=== PATIENT | female | born 1995 | race Caucasian/White ===

== ENCOUNTER 2017-08-24 11:50 | Inpatient (IN) | payer OTHER ==
[~2017-08-24 11:50] MED LIST: ANAPROX DS550 MG PO; DOXYCYCLINE HY100 MG PO; FLEXERIL10 MG PO; NORCO 5-325 TA1 EACH PO
== END 2017-08-26 12:01 | disposition home or self-care (01) | DRG 775 ==
LOC: FBC 11:50
PROVIDERS: ADMIT Obstetrics & Gynecology
PROC: 10E0XZZ Delivery of Products of Conception, External Approach (ICD-10-PCS; principal; 2017-08-25)
PROC: 10907ZC Drainage of Amniotic Fluid, Therapeutic from Products of Conception, Via Natural or Artificial Opening (ICD-10-PCS; principal; 2017-08-25)
PROC: 3E033VJ Introduction of Other Hormone into Peripheral Vein, Percutaneous Approach (ICD-10-PCS; principal; 2017-08-25)
PROC: 00HU33Z Insertion of Infusion Device into Spinal Canal, Percutaneous Approach (ICD-10-PCS; 2017-08-25)
PROC: 3E0R3BZ Introduction of Anesthetic Agent into Spinal Canal, Percutaneous Approach (ICD-10-PCS; 2017-08-25)
DX: O48.0 Post-term pregnancy (principal); O99.02 Anemia complicating childbirth; Z3A.40 40 weeks gestation of pregnancy; Z37.0 Single live birth; O69.81X0 Labor and delivery complicated by cord around neck, without compression, not applicable or unspecified; O62.3 Precipitate labor
CPT/HCPCS: 01960; 36415; 85027; 99407; J2590; J2795; J3010; J7120

== ENCOUNTER 2023-10-25 21:12 | Emergency (ER) | payer OTHER ==
[~2023-10-25] VITALS: Ht 165.1 cm; Wt 76.0 kg
[2023-10-25 21:45] VITALS: BP 000/00
== END 2023-10-25 21:45 | disposition other institution, planned readmission (95) ==
LOC: ED 21:12
DX: F45.8 Other somatoform disorders (principal); F17.200 Nicotine dependence, unspecified, uncomplicated; Z91.018 Allergy to other foods; Z53.21 Procedure and treatment not carried out due to patient leaving prior to being seen by health care provider
CPT/HCPCS: 36415; 84703

== ENCOUNTER 2024-01-22 12:24 | Emergency (ER) | payer OTHER ==
[~2024-01-22] VITALS: Ht 165.1 cm; Wt 69.8 kg
[2024-01-22 13:17] LABS: BILIRUBIN, URINE NEGATIVE (negative); BLOOD/HGB, URINE NEGATIVE (Negative); KETONE, URINE NEGATIVE (Negative); LEUK ESTERASE, URINE NEGATIVE (negative); NITRITE, URINE NEGATIVE (negative)
[2024-01-22 13:41] LABS: AMPHETAMINES, URINE POSITIVE (NEGATIVE); BARBITURATES, URINE NEGATIVE (NEGATIVE); BENZODIAZEPINE, URINE NEGATIVE (NEGATIVE); BUPRENORPHINE, URINE NEGATIVE (NEGATIVE); CANNABINOID, URINE POSITIVE (NEGATIVE); COCAINE, URINE NEGATIVE (NEGATIVE); ECSTASY, URINE NEGATIVE (NEGATIVE); FENTANYL, URINE NEGATIVE (NEGATIVE); METHADONE, URINE NEGATIVE (NEGATIVE); OPIATES, URINE NEGATIVE (NEGATIVE); OXYCODONE, URINE NEGATIVE (NEGATIVE); PHENCYCLIDINE, URINE NEGATIVE (NEGATIVE)
[2024-01-22 14:00] LABS: BASOPHILS 0.8 % (0-2); EOSINOPHILS 1.4 % (0-6); HEMATOCRIT 39.8 % (35.0-50.0); HEMOGLOBIN 13.5 g/dL (12.0-18.0); LYMPHOCYTES 19.3 % (24-44); MCH 31.6 (27-36); MCHC 33.8 g/dl (30-36); MCV 93.4 fl (81-99); NEUTROPHILS 72.5 % (39-80); PLATELET COUNT 326 K/uL (140-440); RBC 4.26 M/ul (4.3-5.7); RDW 12.5 (10.5-15.0)
[2024-01-22 14:19] LABS: ACETAMINOPHEN 0 ug/mL (10-30); ALBUMIN 4.3 g/dL (3.4-5.0); ALBUMIN/GLOBULIN RATIO 1.26 (1.1-2.4); ALCOHOL, MEDICAL <3 ng/dL (<3); ALKALINE PHOSPHATASE 69 U/L (46-116); ALT (SGPT) 26 U/L (14-59); ANION GAP 13.8 (7-21); AST (SGOT) 28 U/L (15-37); BILIRUBIN, TOTAL 0.4 ng/dL (0.2-1.0); BUN/CREATININE RATIO 14.08 (6.0-28.6); CALCIUM 10.1 mg/dL (8.5-10.1); CARBON DIOXIDE 28 mmol/L (21-32); CHLORIDE 100 mmol/L (98-107); CREATININE, SERUM 0.71 mg/dL (0.55-1.02); GLOMERULAR FILTRATION RATE,EST 118 mL/min (>60); POTASSIUM 3.8 mmol/L (3.5-5.1); PROTEIN, TOTAL 7.7 g/dL (6.4-8.2); SALICYLATE 3.3 mg/dL (2.8-20.0); UREA NITROGEN 10 mg/dL (7-18)
[2024-01-22] MEDS ORDERED: HALOPERIDOL LACTATE 5 MG/ML VIAL IM ONE ×2 (14:45→18:00)
[2024-01-22] MEDS ORDERED: LORazepam 2 MG/ML VIAL IM ONE ×2 (14:45→18:00)
[2024-01-22] MEDS ORDERED: diphenhydrAMINE HCL 50 MG/ML VIAL IM PRN (14:45)
[2024-01-22] MEDS ORDERED: diphenhydrAMINE HCL 50 MG/ML VIAL IM ONE (18:30)
[2024-01-23 02:56] LABS: BASOPHILS 0.9 % (0-2); EOSINOPHILS 5.8 % (0-6); HEMATOCRIT 39.9 % (35.0-50.0); HEMOGLOBIN 13.2 g/dL (12.0-18.0); LYMPHOCYTES 40.1 % (24-44); MCH 31.4 (27-36); MCHC 33.2 g/dl (30-36); MCV 94.4 fl (81-99); MONOCYTES 8.7 % (0-12); NEUTROPHILS 44.5 % (39-80); PLATELET COUNT 293 K/uL (140-440); RBC 4.22 M/ul (4.3-5.7); RDW 13.1 (10.5-15.0)
--- NOTE | 2024-01-24 09:00 | EKG ---
[facility] [address] [place], [place] [address] Signed Normal sinus rhythm with sinus arrhythmia Normal ECG No previous ECGs available Confirmed by Carlos Davidson MD ([id number]) on 01/24/2024 9:00:28 AM Electronically Signed By: CARLOS DAVIDSON 01/24/24 0900 PATIENT NAME: AISSATOU BRYSON ALIN Electrocardiogram DATE OF : [birth year] PHYSICIAN: CARLOS DAVIDSON REPORT #: [id number] REPORT IS CONFIDENTIAL AND NOT TO BE RELEASED WITHOUT AUTHORIZATION
[2024-01-24] MEDS ORDERED: HALOPERIDOL LACTATE 5 MG/ML VIAL IM ONE ×2 (12:15→15:45)
[2024-01-24] MEDS ORDERED: diphenhydrAMINE HCL 50 MG/ML VIAL IM PRN (12:15)
[2024-01-24] MEDS ORDERED: LORazepam 2 MG/ML VIAL IM ONE ×2 (12:15→15:45)
[2024-01-24] MEDS ORDERED: diphenhydrAMINE HCL 50 MG/ML VIAL IM ONE (15:45)
[2024-01-25] MEDS ORDERED: LORazepam 1 MG TAB PO ONE (17:30)
--- NOTE | 2024-01-26 13:15 | EKG ---
[facility] [address] [place], [place] [address] Signed Sinus bradycardia Otherwise normal ECG When compared with ECG of 22-JAN-2024 20:11, QT has shortened Confirmed by Carlos Davidson MD ([id number]) on 01/26/2024 1:15:12 PM Electronically Signed By: CARLOS DAVIDSON 01/26/24 1315 PATIENT NAME: ADELAIDEAISSATOU Electrocardiogram DATE OF : [birth year] PHYSICIAN: CARLOS DAVIDSON REPORT #: [id number] REPORT IS CONFIDENTIAL AND NOT TO BE RELEASED WITHOUT AUTHORIZATION
[2024-01-26] MEDS ORDERED: PENICILLIN V POTASSIUM 500 MG TAB PO SCH (14:00)
[2024-01-26] MEDS ORDERED: PENICILLIN V POTASSIUM 500 MG TAB ONE (16:10)
[2024-01-26] MEDS ORDERED: ACETAMINOPHEN 500 MG TAB PO ONE (16:30)
[2024-01-26] MEDS ORDERED: diphenhydrAMINE HCL 25 MG CAP PO ONE (20:30)
[2024-01-27] MEDS ORDERED: OLANZapine 10 MG TABDIS PO SCH (09:00)
[2024-01-27] MEDS ORDERED: AMOXICILLIN 500 MG CAP PO SCH (09:00)
[2024-01-27] MEDS ORDERED: diphenhydrAMINE HCL 50 MG/ML VIAL IM ONE (17:45)
[2024-01-27] MEDS ORDERED: LORazepam 2 MG/ML VIAL IM ONE (17:45)
[2024-01-27] MEDS ORDERED: HALOPERIDOL LACTATE 5 MG/ML VIAL IM ONE (17:45)
[2024-01-27] MEDS ORDERED: TRAZODONE HCL 50 MG TAB PO SCH (21:00)
[2024-01-29] MEDS ORDERED: LORazepam 2 MG/ML VIAL IM ONE ×2 (13:00→20:15)
[2024-01-29] MEDS ORDERED: HALOPERIDOL LACTATE 5 MG/ML VIAL IM ONE ×2 (13:00→20:15)
[2024-01-29] MEDS ORDERED: diphenhydrAMINE HCL 50 MG/ML VIAL IM PRN (13:00)
[2024-01-29] MEDS ORDERED: diphenhydrAMINE HCL 50 MG/ML VIAL IM ONE (20:15)
[2024-01-29] MEDS ORDERED: diphenhydrAMINE HCL 50 MG CAP PO ONE (20:15)
[2024-01-29 20:58] VITALS: BP 112/88
== END 2024-01-29 20:58 | disposition other institution, planned readmission (95) ==
LOC: ED 12:24
PROVIDERS: Emergency Medicine; Internal Medicine
DX: Z04.6 Encounter for general psychiatric examination, requested by authority (principal); F29 Unspecified psychosis not due to a substance or known physiological condition; F19.10 Other psychoactive substance abuse, uncomplicated; F17.200 Nicotine dependence, unspecified, uncomplicated; Z91.018 Allergy to other foods
CPT/HCPCS: 36415; 80053; 80307; 81003; 84443; 84703; 85025; 93005; 93010; 96372; 99284-25; A9270; A9270-GY; G0480; J1200; J1630; J2060; Q0163; U0002

== ENCOUNTER 2024-02-01 19:06 | Emergency (ER) | payer OTHER ==
[~2024-02-01] VITALS: Ht 165.1 cm; Wt 72.0 kg
--- OUTSIDE RECORDS SUMMARY | 2024-02-01 19:13 | XMS ---
PreManage Notification: AISSATOU BRYSON Security Pattern Hand Events No recent Security Events currently on file CRITERIA MET - [facility] - 2 Visits in 30 Days CARE PROVIDERS -[facility] Dentist: Recovery Agent Current [place] PHONE: [phone] -, [facility] Dentist: Recovery Agent [facility] PHONE: [phone] -[place]- Dentist: Recovery Agent Current [facility] PHONE: [phone] [facility] Current CARE SYSTEM \F\ [facility] PHONE: [phone] Susan has no Care Guidelines for this patient. Jm VISIT COUNT (12 MO.) 4 [facility] TOTAL 5 NOTE: Visits indicate total known visits. ED/UCC VISIT TRACKING (12 MO.) 02/01/2024 19:06 [facility] [place] TYPE: Emergency COMPLAINT: - MEDICAL CLEARANCE 2024 12:25 [facility] [place] TYPE: Emergency COMPLAINT: - MEDICAL CLEARANCE DIAGNOSES: - Allergy to other foods - Encounter for general psychiatric examination, requested by authority - Nicotine dependence, unspecified, uncomplicated - Other psychoactive substance abuse, uncomplicated - Unspecified psychosis not due to a substance or known physiological condition 11/21/2023 17:34 Located within [facility] [place] TYPE: Emergency 10/25/2023 21:12 [facility] [place] TYPE: Emergency COMPLAINT: - MEDICAL CLEARANCE DIAGNOSES: - Allergy to other foods - Complete or unspecified spontaneous without complication - Nicotine dependence, unspecified, uncomplicated - Other somatoform disorders - Procedure and treatment not carried out due to patient leaving prior to being seen by health care provider [facility] COMPLAINT: - DIFFICULTY BREATHING DIAGNOSES: - Allergy to other foods - Anxiety disorder, unspecified - Delusional disorders - Nicotine dependence, unspecified, uncomplicated - Other stimulant abuse, uncomplicated - Shortness of breath INPATIENT VISIT TRACKING (12 MO.) 11/24/2023 00:15 [facility] [place] TYPE: Psychiatric Services DIAGNOSES: 0. Unspecified psychosis not due to a substance or known physiological condition 1. Unspecified psychosis not due to a substance or known physiological condition 2. Homelessness unspecified 2. Homicidal ideations 2. Other stimulant abuse, uncomplicated 2. Patient's unintentional underdosing of medication regimen for other reason 2. Periapical abscess without sinus 2. Suicidal ideations 2. Xerosis cutis [email or web address]
[2024-02-01] MEDS ORDERED: HALOPERIDOL LACTATE 5 MG/ML VIAL IM ONE (19:30)
[2024-02-01] MEDS ORDERED: diphenhydrAMINE HCL 50 MG/ML VIAL IV ONE (19:30)
[2024-02-01] MEDS ORDERED: LORazepam 2 MG/ML VIAL IV ONE (19:30)
[2024-02-01 20:01] LABS: BASOPHILS 1.4 % (0-2); EOSINOPHILS 2.5 % (0-6); HEMATOCRIT 35.8 % (35.0-50.0); HEMOGLOBIN 12.2 g/dL (12.0-18.0); LYMPHOCYTES 35.5 % (24-44); MCH 31.5 (27-36); MCHC 33.9 g/dl (30-36); MCV 92.9 fl (81-99); MONOCYTES 5.5 % (0-12); NEUTROPHILS 55.1 % (39-80); PLATELET COUNT 286 K/uL (140-440); RBC 3.86 M/ul (4.3-5.7); RDW 12.2 (10.5-15.0)
[2024-02-01 20:23] LABS: ALBUMIN 3.6 g/dL (3.4-5.0); ALBUMIN/GLOBULIN RATIO 1.16 (1.1-2.4); ALCOHOL, MEDICAL <3 ng/dL (<3); ALKALINE PHOSPHATASE 60 U/L (46-116); ALT (SGPT) 26 U/L (14-59); ANION GAP 12.4 (7-21); AST (SGOT) 24 U/L (15-37); BILIRUBIN, TOTAL 0.3 ng/dL (0.2-1.0); BUN/CREATININE RATIO 18.18 (6.0-28.6); CALCIUM 9.1 mg/dL (8.5-10.1); CARBON DIOXIDE 27 mmol/L (21-32); CHLORIDE 106 mmol/L (98-107); CREATININE, SERUM 0.77 mg/dL (0.55-1.02); GLOMERULAR FILTRATION RATE,EST 106 mL/min (>60); POTASSIUM 3.4 mmol/L (3.5-5.1); PROTEIN, TOTAL 6.7 g/dL (6.4-8.2); TSH, 3RD GENERATION 1.101 uIU/mL (0.358-3.740); UREA NITROGEN 14 mg/dL (7-18)
[2024-02-02 06:35] LABS: BILIRUBIN, URINE NEGATIVE (negative); BLOOD/HGB, URINE NEGATIVE (Negative); KETONE, URINE NEGATIVE (Negative); LEUK ESTERASE, URINE NEGATIVE (negative); NITRITE, URINE NEGATIVE (negative)
[2024-02-02 06:40] LABS: BACTERIA, URINE NONE SEEN /hpf (negative); CASTS, URINE NONE SEEN \\lpf; COLLECTION TYPE, URINE CLEAN CATCH; CRYSTALS, URINE NONE SEEN (0-1+); EPITHELIAL CELLS, URINE RARE /lpf (0-1+); RED BLOOD CELLS, URINE 0-1 /hpf (0-5); REFLEX CULTURE, URINE No (No); WHITE BLOOD CELLS, URINE 0-1 /HPF (0-5)
[2024-02-02 06:54] LABS: AMPHETAMINES, URINE NEGATIVE (NEGATIVE); BARBITURATES, URINE NEGATIVE (NEGATIVE); BENZODIAZEPINE, URINE NEGATIVE (NEGATIVE); BUPRENORPHINE, URINE NEGATIVE (NEGATIVE); CANNABINOID, URINE POSITIVE (NEGATIVE); COCAINE, URINE NEGATIVE (NEGATIVE); ECSTASY, URINE NEGATIVE (NEGATIVE); FENTANYL, URINE NEGATIVE (NEGATIVE); METHADONE, URINE NEGATIVE (NEGATIVE); OPIATES, URINE NEGATIVE (NEGATIVE); OXYCODONE, URINE NEGATIVE (NEGATIVE); PHENCYCLIDINE, URINE NEGATIVE (NEGATIVE)
[2024-02-02] MEDS ORDERED: OLANZapine 10 MG TABDIS PO SCH (16:42)
[2024-02-02] MEDS ORDERED: TRAZODONE HCL 50 MG TAB PO SCH (21:00)
[2024-02-03 15:45] VITALS: BP 104/65
--- NOTE | 2024-02-03 21:38 | EKG ---
[facility] [address] [place] [address] Signed Sinus bradycardia Otherwise normal ECG When compared with ECG of 24-JAN-2024 17:30, No significant change was found Confirmed by Myles Ortega MD () on 02/03/2024 9:37:57 PM Electronically Signed By: MYLES ORTEGA MD 02/03/24 2138 PATIENT NAME: AISSATOU BRYSON ALIN Electrocardiogram DATE OF : [birth year] PHYSICIAN: MYLES ORTEGA MD REPORT #: [id number] REPORT IS CONFIDENTIAL AND NOT TO BE RELEASED WITHOUT AUTHORIZATION
== END 2024-02-03 15:45 ==
LOC: ED 19:06
PROVIDERS: Internal Medicine
DX: F20.9 Schizophrenia, unspecified (principal); F17.200 Nicotine dependence, unspecified, uncomplicated; Z91.02 Food additives allergy status
CPT/HCPCS: 36415; 80053; 80307; 81001; 84443; 84703; 85025; 93005; 93010; 96374; 96375; 99285-25; G0480; J1200; J1630; J2060; U0002

== ENCOUNTER 2024-09-07 11:10 | Emergency (ER) | payer OTHER ==
[~2024-09-07] VITALS: Ht 165.1 cm; Wt 82.0 kg
[2024-09-07] MEDS ORDERED: HALOPERIDOL LACTATE 5 MG/ML VIAL IM ONE (11:30)
[2024-09-07] MEDS ORDERED: diphenhydrAMINE HCL 50 MG/ML VIAL IM ONE (11:30)
[2024-09-07] MEDS ORDERED: LORazepam 2 MG/ML VIAL IM ONE ×2 (11:30→12:00)
[2024-09-07 12:37] LABS: BASOPHILS 0.6 % (0-2); EOSINOPHILS 1.7 % (0-6); LYMPHOCYTES 26.8 % (24-44); MCH 31.3 (27-36); MCV 89.4 fl (81-99); MONOCYTES 8.6 % (0-12); NEUTROPHILS 62.3 % (39-80); PLATELET COUNT 390 K/uL (140-440); RBC 4.47 M/ul (4.3-5.7)
[2024-09-07 13:05] LABS: AMPHETAMINES, URINE POSITIVE (NEGATIVE); BARBITURATES, URINE NEGATIVE (NEGATIVE); BENZODIAZEPINE, URINE NEGATIVE (NEGATIVE); BUPRENORPHINE, URINE NEGATIVE (NEGATIVE); CANNABINOID, URINE POSITIVE (NEGATIVE); COCAINE, URINE NEGATIVE (NEGATIVE); ECSTASY, URINE POSITIVE (NEGATIVE); FENTANYL, URINE NEGATIVE (NEGATIVE); METHADONE, URINE NEGATIVE (NEGATIVE); OPIATES, URINE NEGATIVE (NEGATIVE); OXYCODONE, URINE NEGATIVE (NEGATIVE); PHENCYCLIDINE, URINE NEGATIVE (NEGATIVE)
[2024-09-07 13:06] LABS: ACETAMINOPHEN 0 ug/mL (10-30); ALBUMIN 4.3 g/dL (3.4-5.0); ALBUMIN/GLOBULIN RATIO 1.19 (1.1-2.4); ALCOHOL, MEDICAL <3 ng/dL (<3); ALKALINE PHOSPHATASE 78 U/L (46-116); ALT (SGPT) 30 U/L (14-59); ANION GAP 15.2 (7-21); AST (SGOT) 37 U/L (15-37); BILIRUBIN, TOTAL 0.6 mg/dL (0.2-1.0); BUN/CREATININE RATIO 31.94 (6.0-28.6); CALCIUM 9.5 mg/dL (8.5-10.1); CARBON DIOXIDE 24 mmol/L (21-32); CHLORIDE 103 mmol/L (98-107); CREATININE, SERUM 0.72 mg/dL (0.55-1.02); GLOMERULAR FILTRATION RATE,EST 115 mL/min (>60); POTASSIUM 3.2 mmol/L (3.5-5.1); PROTEIN, TOTAL 7.9 g/dL (6.4-8.2); SALICYLATE 3.1 mg/dL (2.8-20.0); TSH, 3RD GENERATION 0.842 uIU/mL (0.358-3.740); UREA NITROGEN 23 mg/dL (7-18)
[2024-09-08] MEDS ORDERED: OLANZapine 10 MG TABDIS PO PRN (07:30)
[2024-09-08 11:14] VITALS: BP 120/84
== END 2024-09-08 11:14 | disposition home or self-care (01) ==
LOC: ED 11:10
PROVIDERS: Emergency Medicine
DX: F15.959 Other stimulant use, unspecified with stimulant-induced psychotic disorder, unspecified (principal); F17.200 Nicotine dependence, unspecified, uncomplicated; Z91.018 Allergy to other foods
CPT/HCPCS: 36415; 80053; 80307; 84443; 84703; 85025; 96372; 99285; A9270; G0480; J1200; J1630; J2060